=== PATIENT | male | born 1995 | race African-American/Black ===

== ENCOUNTER 2020-12-11 07:18 | Emergency (ER) | payer SELFPAY ==
[2020-12-11 07:34] VITALS: BP 133/82
--- NOTE | 2020-12-11 07:54 | Emergency Department Report ---
ED General Adult HPI - General Chief complaint: Earache Stated complaint: rt right ear pain Time Seen by Provider: 12/11/20 07:39 Source: patient Mode of arrival: Ambulatory Limitations: No Limitations - History of Present Illness Initial comments: 25-year-old male patient presents with complaints of bilateral ear pain, right worse than left x1 week. He rates his pain as a 8/10 in severity and states it is not improving with ibuprofen. He denies any headache, cough, nausea/vomiting, or shortness of breath. No history of recurrent ear infections per patient. He also denies any swimming or ear drainage. Patient states he had a positive COVID-19 test about 10 days ago. No other past medical history per patient. - Related Data Previous Rx's Medication Instructions Recorded Last Taken Type Acetaminophen/Codeine [Tylenol 1 tab PO Q8H PRN #4 tab 12/11/20 Unknown Rx /Codeine # 3 tab] Amoxicillin/Potassium Clav 1 each PO BID 10 Days #20 tablet 12/11/20 Unknown Rx [Augmentin 875-125 Tablet] Ibuprofen [Motrin 800 MG tab] 800 mg PO Q8HR PRN #20 tablet 12/11/20 Unknown Rx Ofloxacin 0.3% [Floxin 0.3% Otic] 10 ml AU QDAY 7 Days #1 bottle 12/11/20 Unknown Rx Allergies Allergy/AdvReac Type Severity Reaction Status Date / Time No Known Allergies Allergy Unverified 12/11/20 07:28 ED Review of Systems ROS: Stated complaint: rt right ear pain Other details as noted in HPI Constitutional: denies: chills, diaphoresis, fever, malaise, weakness ENT: ear pain. denies: throat pain Respiratory: denies: cough, shortness of breath Cardiovascular: denies: chest pain Gastrointestinal: denies: nausea, vomiting Skin: denies: rash, lesions Neurological: denies: headache Hematological/Lymphatic: denies: swollen glands ED Past Medical Hx - Past Medical History Previous Medical History?: No - Surgical History Past Surgical History?: No - Social History Smoking Status: Current Every Day Smoker Substance Use Type: Marijuana - Medications Home Medications: Home Medications Medication Instructions Recorded Confirmed Last Taken Type Acetaminophen/Codeine [Tylenol 1 tab PO Q8H PRN #4 tab 12/11/20 Unknown Rx /Codeine # 3 tab] Amoxicillin/Potassium Clav 1 each PO BID 10 Days #20 tablet 12/11/20 Unknown Rx [Augmentin 875-125 Tablet] Ibuprofen [Motrin 800 MG tab] 800 mg PO Q8HR PRN #20 tablet 12/11/20 Unknown Rx Ofloxacin 0.3% [Floxin 0.3% Otic] 10 ml AU QDAY 7 Days #1 bottle 12/11/20 Unknown Rx ED Physical Exam - General Limitations: No Limitations General appearance: alert, in no apparent distress, obese - Head Head exam: Present: atraumatic, normocephalic - Eye Eye exam: Present: normal appearance. Absent: scleral icterus - ENT ENT exam: Present: normal orophraynx - Expanded ENT Exam Expanded TM/Canal exam: Erythema: Left TM, Canal Discharge: Right TM, Left TM (Difficulty visualizing tympanic membrane on the right), Canal Tenderness: Right TM, Left TM (Canal swollen on the right, mild) - Neck Neck exam: Present: normal inspection - Respiratory Respiratory exam: Absent: respiratory distress - Cardiovascular Cardiovascular Exam: Present: regular rate - Neurological Exam Neurological exam: Present: alert, oriented X3 - Psychiatric Psychiatric exam: Present: normal affect, normal mood - Skin Skin exam: Present: warm, dry, intact, normal color. Absent: rash ED Course Vital Signs 12/11/20 07:33 Temperature 98.2 F Pulse Rate 80 Respiratory 20 Rate Blood Pressure 133/82 O2 Sat by Pulse 94 Oximetry ED Medical Decision Making - Medical Decision Making 25-year-old male patient presents with complaints of bilateral ear pain, right worse than left x1 week. He rates his pain as a 8/10 in severity and states it is not improving with ibuprofen. He denies any headache, cough, nausea/vomiting, or shortness of breath. No history of recurrent ear infections per patient. He also denies any swimming or ear drainage. Patient states he had a positive COVID-19 test about 10 days ago. No other past medical history per p atient. On exam, patient has bilateral canal discharge, tenderness, and erythema of the left tympanic membrane noted. Will treat for otitis media and otitis externa with ofloxacin and Augmentin. Recommend patient follows up with primary care in 3 days for reassessment. His vitals are normal, he is well-appearing, he is stable for discharge home. Discussed diagnosis, plan of care, and signs and sy mptoms that should prompt immediate return to the emergency department in detail with patient who verbalizes understanding. Critical care attestation.: If time is entered above; I have spent that time in minutes in the direct care of this critically ill patient, excluding procedure time. ED Disposition Clinical Impression: Otitis media, Otitis externa Disposition: HOME / SELF CARE / HOMELESS Is pt being admited?: No Condition: Stable Instructions: Otitis Externa, [id number], Otitis Media, Adult, [id number] Prescriptions: Amoxicillin/Potassium Clav [Augmentin 875-125 Tablet] 1 each PO BID 10 Days #20 tablet Ofloxacin 0.3% [Floxin 0.3% Otic] 10 ml AU QDAY 7 Days #1 bottle Ibuprofen [Motrin 800 MG tab] 800 mg PO Q8HR PRN #20 tablet PRN Reason: Pain, Moderate (4-6) Acetaminophen/Codeine [Tylenol /Codeine # 3 tab] 1 tab PO Q8H PRN #4 tab PRN Reason: Pain , Severe (7-10) Referrals: [facility] [Provider Group] - 3-5 Days LUIS E YOUNG MD [Staff Physician] - as needed Forms: Work/School Release Form(ED)
== END 2020-12-11 08:31 | disposition home or self-care (01) ==
LOC: ED 07:18
DX: H60.93 Unspecified otitis externa, bilateral (principal); H66.93 Otitis media, unspecified, bilateral; F17.290 Nicotine dependence, other tobacco product, uncomplicated
CPT/HCPCS: 99282